=== PATIENT | male | born 1960 ===

== ENCOUNTER → 2019-12-19 08:59 | Outpatient (BNVA) | payer OTHER, SELFPAY | PROVIDERS: PCP Internal Medicine; Referring Provider Internal Medicine; Visit Provider Urology | DX: Z76.89 Persons encountering health services in other specified circumstances (principal) ==

== ENCOUNTER 2020-12-25 09:50 | Outpatient (REF) | payer OTHER, SELFPAY ==
--- NOTE | ~2020-12-25 | US_ITS ---
EXAMINATION: US RETROPERITONEAL COMPLETE (RENAL) CLINICAL INFORMATION: Neuromuscular dysfunction of bladder, hydronephrosis. COMPARISON: Renal ultrasound 11/16/2018 TECHNIQUE: Real-time imaging of the kidneys and bladder. FINDINGS: RIGHT KIDNEY: 10.7 x 4.4 x 5.6 cm (SAG x AP x TRV). The kidney is normal in size, contour, and echogenicity. Renal cortical thickness is normal. No calculi or focal parenchymal lesions. No hydronephrosis. LEFT KIDNEY: 10.8 x 4.0 x 5.5 cm (SAG x AP x TRV). The kidney is normal in size, contour, and echogenicity. Renal cortical thickness is normal. No calculi or focal parenchymal lesions. No hydronephrosis. BLADDER: The bladder wall appears diffusely thickened and trabeculated. Bilateral ureteral jets are demonstrated. Prevoid bladder volume is 536 mL. Postvoid bladder volume is 375 mL. PROSTATE: The prostate gland is normal in size and measures 3.3 x 3 x 3.3 cm, volume 17 mL. US/US retroperitoneal comp IMPRESSION: Normal renal ultrasound. Thickened trabeculated bladder wall and large 375 mL post void bladder residual.
== END 2020-12-25 09:51 | disposition home or self-care (01) ==
LOC: HO.HMGCX 09:50
PROVIDERS: Visit Provider Urology
DX: N31.9 Neuromuscular dysfunction of bladder, unspecified (principal); N13.30 Unspecified hydronephrosis
CPT/HCPCS: 76770

== ENCOUNTER → 2021-02-04 13:59 | Outpatient (BNVA) | payer OTHER, SELFPAY | PROVIDERS: PCP Internal Medicine ==

== ENCOUNTER → 2022-02-04 11:27 | Outpatient (BNVA) | payer OTHER, SELFPAY | PROVIDERS: PCP Internal Medicine; Visit Provider Urology | DX: N40.1 Benign prostatic hyperplasia with lower urinary tract symptoms (principal) ==

== ENCOUNTER 2022-02-14 16:37 | Outpatient (REF) | payer OTHER, SELFPAY ==
[2022-02-14 17:26] LABS: Appearance Urine Clear; Color Urine Yellow; Glucose Urine UA Negative (Negative); Leukocyte Esterase Urine Trace (Negative); Nitrite Urine Negative (Negative); PH 6.5 (5.0-9.0); UMIC TRIGGER UA YES; Urine Blood Negative (Negative); Urine Ketones Negative (Negative); Urine Protein Negative (Neg-Trace)
[2022-02-14 17:28] LABS: Bacteria Urine None Seen (None Seen); Hyaline Casts Urine 0-2 /LPF (0-2); RBC Urine 0-2 /HPF (0-2); Squamous Epithelial Cell Urine 0-2 /HPF (0-2); WBC Urine 0-5 /HPF (0-5)
== END 2022-02-14 16:38 | disposition home or self-care (01) ==
LOC: HO.LAB 16:37
PROVIDERS: PCP Internal Medicine; Visit Provider Urology
DX: N13.8 Other obstructive and reflux uropathy (principal); N31.9 Neuromuscular dysfunction of bladder, unspecified; N40.1 Benign prostatic hyperplasia with lower urinary tract symptoms
CPT/HCPCS: 81001; 87086

== ENCOUNTER → 2022-03-17 12:24 | Outpatient (BNVA) | payer OTHER, SELFPAY | PROVIDERS: PCP Internal Medicine; Visit Provider Urology | DX: Z13.89 Encounter for screening for other disorder (principal) ==

== ENCOUNTER → 2022-05-10 14:46 | Outpatient (BNVA) | payer OTHER, SELFPAY | PROVIDERS: PCP Internal Medicine; Visit Provider Urology | DX: Z13.89 Encounter for screening for other disorder (principal) ==

== ENCOUNTER 2022-11-16 08:46 | Outpatient (AMB) | payer OTHER, SELFPAY ==
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
== END 2022-11-16 10:04 | disposition home or self-care (01) ==
PROVIDERS: PCP Internal Medicine; Visit Provider Urology
DX: N31.9 Neuromuscular dysfunction of bladder, unspecified (principal); N40.1 Benign prostatic hyperplasia with lower urinary tract symptoms; N13.8 Other obstructive and reflux uropathy
CPT/HCPCS: 99214

== ENCOUNTER → 2022-11-16 08:46 | Outpatient (BNVA) | payer OTHER, SELFPAY | PROVIDERS: PCP Internal Medicine; Visit Provider Urology ==

== ENCOUNTER 2023-02-22 11:43 | Outpatient (AMB) | payer OTHER, SELFPAY ==
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
== END 2023-02-22 13:41 | disposition home or self-care (01) ==
LOC: HO.HUSH 11:43
PROVIDERS: PCP Internal Medicine; Visit Provider Urology
DX: N40.1 Benign prostatic hyperplasia with lower urinary tract symptoms (principal); N13.8 Other obstructive and reflux uropathy; N31.9 Neuromuscular dysfunction of bladder, unspecified
CPT/HCPCS: 99214

== ENCOUNTER → 2023-02-22 11:43 | Outpatient (BNVA) | payer OTHER, SELFPAY | PROVIDERS: PCP Internal Medicine; Visit Provider Urology ==

== ENCOUNTER 2023-03-13 08:34 | Day surgery (SDC) | payer OTHER, SELFPAY ==
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
[2023-03-13] VITALS (8 sets, daily range): BP systolic 83–116; BP diastolic 50–72; PULSE 51–70; RESP 12–16; TEMP 36.6–37.1; O2SAT 95–98; BMI 18.7
[2023-03-13] MEDS: Lactated Ringers 1,000 ML 100 ML IVCONT (09:49)
--- NOTE | 2023-03-13 10:52 | MHC.SHP ---
Pre-Procedural Eval Section A - 24 Hr Update-Section A only Date of Service: 03/13/23 The patient is an INPATIENT: No Changes since office visit: No Cold of Flu in the past 2 weeks, No New Medical Problems, No Changes in Medication and No Patient answered all questions The patient has been examined within 24 hours of the surgical procedure. The History & Physical has been completed within 30 days and I have reviewed it.: Yes Section B - Complete if H&P > 30 days Chief Complaint: Neuromuscular dysfunction of bladder, unspecified Allergies: Allergies Allergy/AdvReac Type Severity Reaction Status Date / Time Sulfa (Sulfonamide Allergy Unknown unknown Verified 03/13/23 09:20 Antibiotics) Plan Diagnosis/Plan: Unchanged (external urethral sphincterotomy - green light) I have reviewed the history and physical and performed a pertinent physical examination on my patient. No changes have occurred unless specified. Time Spent With Patient Time: Total time managing care of this patient today ____ minutes.
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
[2023-03-13] MEDS: oxyBUTYnin chloride ER 5 MG TAB.ER.24 PO (14:38)
--- NOTE | 2023-03-13 14:45 | PC.NURSE ---
dr. goins visited with patient and spouse and updated them regarding procedure and f/u. dr. goins also ordered for patient to receive po oxybutinin in discharge. given and this information written on discharge instructions.
== END 2023-03-13 14:46 | disposition home or self-care (01) ==
PROVIDERS: PCP Internal Medicine; Visit Provider Urology
PROC: (CPT 52648; principal; 2023-03-13 10:50)
DX: N31.9 Neuromuscular dysfunction of bladder, unspecified (principal); G82.54 Quadriplegia, C5-C7 incomplete; S14.157 Other incomplete lesion at C7 level of cervical spinal cord; S12.690S Other displaced fracture of seventh cervical vertebra, sequela; V89.2XXS Person injured in unspecified motor-vehicle accident, traffic, sequela; N40.1 Benign prostatic hyperplasia with lower urinary tract symptoms; N13.8 Other obstructive and reflux uropathy; R39.14 Feeling of incomplete bladder emptying; R33.9 Retention of urine, unspecified; Z98.890 Other specified postprocedural states; Z88.2 Allergy status to sulfonamides
CPT/HCPCS: 52648; 52277; J1956; J2704; J3010

== ENCOUNTER → 2023-03-13 08:34 | Outpatient (BNV) | payer OTHER, SELFPAY | PROVIDERS: PCP Internal Medicine; Visit Provider Urology | DX: N31.9 Neuromuscular dysfunction of bladder, unspecified (principal) | CPT/HCPCS: 52277 ==

== ENCOUNTER → 2023-03-15 09:45 | Outpatient (BNVA) | payer OTHER, SELFPAY | PROVIDERS: PCP Internal Medicine; Visit Provider Urology ==

== ENCOUNTER 2023-04-12 10:10 | Outpatient (AMB) | payer OTHER, SELFPAY ==
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
== END 2023-04-12 10:46 | disposition home or self-care (01) ==
PROVIDERS: PCP Internal Medicine; Visit Provider Urology
DX: N40.1 Benign prostatic hyperplasia with lower urinary tract symptoms (principal); N13.8 Other obstructive and reflux uropathy; N31.9 Neuromuscular dysfunction of bladder, unspecified
CPT/HCPCS: 99213

== ENCOUNTER → 2023-04-12 10:10 | Outpatient (BNVA) | payer OTHER, SELFPAY | PROVIDERS: PCP Internal Medicine; Visit Provider Urology | DX: N31.9 Neuromuscular dysfunction of bladder, unspecified (principal); N40.1 Benign prostatic hyperplasia with lower urinary tract symptoms; N13.8 Other obstructive and reflux uropathy; R33.8 Other retention of urine | CPT/HCPCS: 51798 ==

== ENCOUNTER 2023-05-10 12:49 | Outpatient (AMB) | payer OTHER, SELFPAY ==
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
== END 2023-05-10 13:59 | disposition home or self-care (01) ==
PROVIDERS: PCP Internal Medicine; Visit Provider Urology
DX: N31.9 Neuromuscular dysfunction of bladder, unspecified (principal)
CPT/HCPCS: 52000; 99213

== ENCOUNTER → 2023-05-10 12:49 | Outpatient (BNVA) | payer OTHER, SELFPAY | PROVIDERS: PCP Internal Medicine; Visit Provider Urology | DX: N31.9 Neuromuscular dysfunction of bladder, unspecified (principal); N40.1 Benign prostatic hyperplasia with lower urinary tract symptoms; N13.8 Other obstructive and reflux uropathy | CPT/HCPCS: 52000 ==

== ENCOUNTER 2023-09-05 09:10 | Outpatient (AMB) | payer OTHER, SELFPAY ==
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
== END 2023-09-05 12:00 | disposition home or self-care (01) ==
LOC: HO.HUSH 09:10
PROVIDERS: PCP Internal Medicine; Visit Provider Urology
DX: N40.1 Benign prostatic hyperplasia with lower urinary tract symptoms (principal); N13.8 Other obstructive and reflux uropathy; N31.9 Neuromuscular dysfunction of bladder, unspecified; N39.0 Urinary tract infection, site not specified
CPT/HCPCS: 99213

== ENCOUNTER → 2023-09-05 09:10 | Outpatient (BNVA) | payer OTHER, SELFPAY | PROVIDERS: PCP Internal Medicine; Visit Provider Urology ==

== ENCOUNTER 2023-11-17 11:21 | Outpatient (AMB) | payer OTHER, SELFPAY ==
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
== END 2023-11-17 13:01 | disposition home or self-care (01) ==
PROVIDERS: PCP Internal Medicine; Visit Provider Urology
DX: N31.9 Neuromuscular dysfunction of bladder, unspecified (principal); N40.1 Benign prostatic hyperplasia with lower urinary tract symptoms; N13.8 Other obstructive and reflux uropathy; N39.0 Urinary tract infection, site not specified
CPT/HCPCS: 99213

== ENCOUNTER → 2023-11-17 11:21 | Outpatient (BNVA) | payer OTHER, SELFPAY | PROVIDERS: PCP Internal Medicine; Visit Provider Urology ==

== ENCOUNTER 2024-04-05 12:04 | Outpatient (REF) | payer OTHER, SELFPAY ==
[2024-04-05 13:20] LABS: Appearance Urine Cloudy; Color Urine Yellow; Glucose Urine UA Negative (Negative); Leukocyte Esterase Urine Large (3+) (Negative); Nitrite Urine Negative (Negative); UMIC TRIGGER UA YES; Urine Blood Trace (Negative); Urine Ketones Negative (Negative); Urine Protein Negative (Neg-Trace)
[2024-04-05 13:23] LABS: Bacteria Urine 4+ (None Seen); Hyaline Casts Urine 0-2 /LPF (0-2); RBC Urine 0-2 /HPF (0-2); Squamous Epithelial Cell Urine 0-2 /HPF (0-2); WBC Urine >50 /HPF (0-5)
--- OUTSIDE RECORDS SUMMARY | 2024-04-05 14:20 | XMS_ITS | Encounter Summary ---
Author Organization [facility] Address [address] [place] [address] Care Team Providers Care Snowboarder Name Role Phone Bartolo Turk MD Primary Care Provider [phone] Reason for Referral * Imaging (Routine) - Authorized Specialty Diagnoses / Procedures Referred By Josephac t Referred To Contact Radiology Diagnoses Dysphagia, unspecified type Procedures XR Esophagram Tita Rincon PA [address] [address] Phone: tel: fax: [facility] [address] [place] [address] Phone: tel: Referral ID Status Reason Start Date Expiration Date V isits Requested Visits Authorized [id number] Authorized 01/24/2024 01/23/2025 1 1 Reason for Visit * Imaging (Routine) - Authorized Specialty Diagnoses / Procedures Referred By Contac t Referred To Contact Radiology Diagnoses Dysphagia, unspecified type Procedures XR Esophagram Tita Rincon PA [address] [address] Phone: tel: fax: [facility] [address] [place] [address] Phone: tel: Referral ID Status Reason Start Date Expiration Date V isits Requested Visits Authorized [id number] Authorized 01/24/2024 01/23/2025 1 1 Encounter Details Date Type Department Care Team (Latest Contact Info) Description 04/02/2024 7:59 AM EST - 04/02/2024 11:59 PM EST Hospital Encounter [facility] X[address] [place] [address] Dysphagia, unspecified type Discharge Disposition: Home or Self Care Social History Tobacco Use Types Packs/Day Years Used Date Smoking Tobacco: Never Smokeless Tobacco: Never Alcohol Use Standard Drinks/Week Comments No 0 (1 standard drink = 0.6 oz pur e alcohol) Sex and Gender Information Value Date Recorded Sex Assigned at Not on file Legal Sex Male 7:15 PM EST Gender Identity Not on file Sexual Orientation Not on file documented as of this encounter Medications at Time of Discharge baclofen (LIORESAL) 10 mg tablet Take 1 Tablet by mouth 4 times daily. 05/19/2023 betamethasone, augmented, (DIPROLENE) 0.05 % ointment apply twice daily to hand lesions 06/07/2016 ciclopirox (LOPROX) 0.77 % cream APPLY TWICE DAILY TO RASH OF THE FEET NEEDED. 09/11/2023 clonazePAM (KlonoPIN) 1 mg tablet Take 1 tablet daily from Monday to Monday and 2 tabs on Monday 34 tablet 03/19/2024 5 drainage bag misc 1 Each by route as needed (monthly for neurogenic bladder N319). Reusable Urine Leg Bag Use #1 / month 11 refills Indefinite Use Dx: G82.50, N31.9 01/02/2023 midodrine (PROAMATINE) 5 mg tablet Take 1 Tablet by mouth 3 times daily for 360 days. 05/02/2023 mupirocin (BACTROBAN) 2 % ointment Apply twice daily for 10 days 01/04/2022 nystatin (MYCOSTATIN) 100,000 unit/gram powder Apply topically 2 (two) times a day. 60 g 1 12/22/2023 oxyBUTYnin (DITROPAN) 5 mg tablet Take 0.5 Tablets by mouth 4 times daily. 05/19/2023 terazosin (HYTRIN) 10 mg capsule Take 1 capsule (10 mg total) by mouth 1 (one) time. 10/27/2023 documented as of this encounter Discharge Disposition Disposition Code Departure Means Destination Home or Self Care documented in this encounter Plan of Treatment Upcoming Encounters Date Type Department Care Team (Late st Contact Info) Description 04/29/2024 9:30 AM EDT Office Visit Gastroenterology - [place] [address] [place] [id number] Tita Rincon PA [address] [place] [address] documented as of this encounter Procedures Procedure Name Priority Date/Time Associated Diagnosis Comments XR ESOPHAGRAM Routine 04/02/2024 9:51 AM EST Dysphagia, unspecified type documented in this encounter Results * XR Esophagram (04/02/2024 9:51 AM EST) Anatomical Region Laterality Modality Head and Neck Radiographic Rayna ging 04/02/2024 11:5 0 AM EST Impressions 04/02/2024 12:41 PM EST Limited single contrast esophagram as described above. 1. Mild esophageal dysmotility. 2. Temporary lodging of 13 mm barium tablet within the epiglottis, indicating weak epiglottic inversion. Consider evaluation with speech-language pathology. -------- FINAL REPORT -------- Dictated By: Ayleen Montoya Dictated Date: 04/02/2024 11:50 ET Assigned Physician: Braxton Mejia Reviewed and Electronically Signed By: Braxton Mejia Signed Date: 04/02/2024 12:41 ET Workstation ID: [id number] Transcribed By: Self Edit Transcribed Date: 04/02/2024 12:07 ET Resident/PA/COMPLAINT OPERATOR: Ayleen Montoya Narrative 04/02/2024 12:41 PM EST FINDINGS: Limited single contrast esophagram performed. COMPARISON: None HISTORY: Patient is a 63-year-old male with quadriplegia, dysphagia. Lube Worker radiographs: 1 view chest radiograph demonstrates cardiac and mediastinal contours within normal limits. Lungs are clear bilaterally. Costophrenic angles are sharp. There is dextroscoliosis of the thoracic spine. Osseous structures are grossly unremarkable. 1 view lateral soft tissue neck demonstrates no prevertebral soft tissue masses. Airway is widely patent. There are severe degenerative changes of the cervical spine. Effervescent crystals were administered orally. Thick and thin barium were administered orally under fluoroscopic control. Pharyngoesophagram: Rapid sequence imaging of the hypopharynx during swallowing demonstrates prompt initiation of swallowing. There is normal soft palate elevation and normal epiglottic motion. There is no laryngeal penetration or chemo aspiration. There is no residual in the vallecula nor in the piriform sinuses. Thoracic esophagus: There is mild esophageal dysmotility. Normal distensibility and mucosal pattern without evidence of ulceration, stricture or mass formation. 13mm Barium pill: Swallowed without difficulty. Temporary lodging of 13 mm barium tablet within the epiglottis, indicating weak epiglottic inversion. Subsequent prompt passage of pill from the esophagus into the stomach. DAP: 4.33 Gycm^2 Procedure Note Braxton Mejia MD - 04/02/2024 FINDINGS: Limited single contrast esophagram performed. COMPARISON: None HISTORY: Patient is a 63-year-old male with quadriplegia, dysphagia. Lube Worker radiographs: 1 view chest radiograph demonstrates cardiac andmediastinal contours within normal limits. Lungs are clear bilaterally.Costophrenic angles are sharp. There is dextroscoliosis of the thoracicspine. Osseous structures are grossly unremarkable. 1 view lateral softtissue neck demonstrates no prevertebral soft tissue masses. Airway iswidely patent. There are severe degenerative changes of the cervicalspine. Effervescent crystals were administered orally. Thick and thin barium wereadministered orally under fluoroscopic control. Pharyngoesophagram: Rapid sequence imaging of the hypopharynx duringswallowing demonstrates prompt initiation of swallowing. There is normalsoft palate elevation and normal epiglottic motion. There is no laryngealpenetration or chemo aspiration. There is no residual in the vallecula norin the piriform sinuses. Thoracic esophagus: There is mild esophageal dysmotility. Normaldistensibility and mucosal pattern without evidence of ulceration,stricture or mass formation. 13mm Barium pill: Swallowed without difficulty. Temporary lodging of 13 mmbarium tablet within the epiglottis, indicating weak epiglottic inversion.Subsequent prompt passage of pill from the esophagus into the stomach. DAP: 4.33 Gycm^2 IMPRESSION: Limited single contrast esophagram as described above. 1. Mild esophageal dysmotility. 2. Temporary lodging of 13 mm barium tablet within the epiglottis,indicating weak epiglottic inversion. Consider evaluation withspeech-language pathology. -------- FINAL REPORT -------- Dictated By: Ayleen Montoya Dictated Date: 04/02/2024 11:50 ET Assigned Physician: Braxton Mejia Reviewed and Electronically Signed By: Braxton Mejia Signed Date: 04/02/2024 12:41 ET Workstation ID: [id number] Transcribed By: Self Edit Transcribed Date: 04/02/2024 12:07 ET Resident/PA/COMPLAINT OPERATOR: Ayleen Montoya Tita GEORGES IMSanchez FLUOROSCOPY PROCEDURES Fi nal Result documented in this encounter Visit Diagnoses Diagnosis Dysphagia, unspecified type documented in this encounter Administered Medications Inactive Administered Medications - up to 3 most recent administrations Medication Order MAR Action Action Date Dose Rate Site barium sulfate (E-Z-DISK) tablet 700 mg 700 mg, oral, Once in imaging, Starting on Mon04/02/24 at 0917, For 1 dose, Swallow whole with 1-2 swallows of water just prior to fluoroscopic examination. Given 04/02/2024 9:18 AM EST 700 mg barium sulfate (E-Z-PAQUE) 96 % (w/w) suspension 100 mL 100 mL, oral, Once in imaging, Starting on Mon04/02/24 at 0917, For 1 dose Given 04/02/2024 9:17 AM EST 100 mL documented in this encounter Care Teams Snowboarder Relationship Specialty Start Date End Date Bartolo Turk MD [address] [place] [id number] PCP - General Internal Medicine 12/26/19 documented as of this encounter
--- OUTSIDE RECORDS SUMMARY | 2024-04-05 14:20 | XMS_ITS | Clinical Summary ---
Author Organization [facility] Address [address] [place] [address] Care Team Providers Care Electrical Equipment Tester Name Role Phone Unavailable Primary Care Provider Unavailabl e Source Comments PLEASE NOTE, if this patient is a minor, it may be UNLAWFUL to discuss sensitive information that is contained in these records (such as FAMILY PLANNING, MENTAL HEALTH or SUBSTANCE ABUSE) with the minor patient's parent or other person without the patient's specific authorization.[facility] Immunizations Name Administration Dates Next Due Moderna COVID-19 Vaccine, re d cap blue label, 12+ Primary Series 06/09/2020,05/12/2020 Social History Tobacco Use Types Packs/Day Years Used Date Smoking Tobacco: Never Assessed Social Connections Answer Date Recorded Social Connections and Isolation 0 05/12/2020 Financial Resource Strain Answer Date R ecorded Financial Resource Strain 0 2020 Stress Answer Date Recorded Stress 0 05/12/2020 Physical Activity Answer Date Recorded Physical Activity 0 05/12/2020 Food Insecurity Answer Date Recorded Food 0 05/12/2020 Transportation Needs Answer Date Record ed Transportation 0 05/12/2020 Housing Stability Answer Date Recorded Housing 0 05/12/2020 Safety and Environment Answer Date Zion rded Safety 0 05/12/2020 Utilities Answer Date Recorded Utilities 0 05/12/2020 Employment Answer Date Recorded Employment 0 05/12/2020 Sex and Gender Information Value Date Recorded Sex Assigned at Not on file Legal Sex Male 9:00 AM PDT Gender Identity Not on file Sexual Orientation Not on file Plan of Treatment Health Maintenance Due Date Last Done Comments Diabetes Screening 1960 Hepatitis C Screening 1962 Lipid Screening 1962 Tobacco Screening 1962 HIV Screening 1977 Hypertension Screening (#1) 1980 CT Colonography 04/18/2007 Colonoscopy 04/18/2007 Colorectal Cancer Screening 04/18/2007 FIT/gFOBT 04/18/2007 Fecal DNA 04/18/2007 Flexible Sigmoidoscopy 04/18/2007 Imm-Zoster, Recombinant (1 of 2) 2012 [id number] ( - 2023- season) 2023 021, 05/12/2020 Imm-Influenza (#1) 2023 03/02/2020, 1 03/22/2017, 10/23/2016, Additional history exists Alcohol and Drug Screen 02/07/2024 Depression Annual Screen 02/07/2024 Imm-DTaP/Tdap/Td (3 - Td or Tdap) 06/15/2027 018, 04/30/2007 Insurance [facility] [employer] Member Subscriber Plan / Payer (Ef fective 2019-Present) Name:Ponce Hargrove Relation to Subscriber:Self Name:Ponce Hargrove Payer ID:[id number] Type:Indemnity Address: [address] [address]
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
== END 2024-04-05 12:05 | disposition home or self-care (01) ==
LOC: HO.10HDLNP 12:04
PROVIDERS: Visit Provider Urology
DX: N40.1 Benign prostatic hyperplasia with lower urinary tract symptoms (principal); N13.8 Other obstructive and reflux uropathy; N39.0 Urinary tract infection, site not specified
CPT/HCPCS: 81001; 87086; 87088; 87186

== ENCOUNTER 2024-05-03 10:46 | Outpatient (AMB) | payer OTHER, SELFPAY ==
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
== END 2024-05-03 11:49 | disposition home or self-care (01) ==
LOC: HO.HUSH 10:46
PROVIDERS: PCP Internal Medicine; Visit Provider Urology
DX: N41.9 Inflammatory disease of prostate, unspecified (principal); N39.0 Urinary tract infection, site not specified
CPT/HCPCS: 99214

== ENCOUNTER 2024-05-21 12:06 | Outpatient (AMB) | payer OTHER, SELFPAY ==
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
--- OUTSIDE RECORDS SUMMARY | 2024-05-21 14:49 | XMS_ITS | Clinical Summary ---
Author Organization [facility] Address [address] [place] [address] Care Team Providers Care Manager Reimbursement Name Role Phone Unavailable Primary Care Provider Unavailabl e Source Comments PLEASE NOTE, if this patient is a minor, it may be UNLAWFUL to discuss sensitive information that is contained in these records (such as FAMILY PLANNING, MENTAL HEALTH or SUBSTANCE ABUSE) with the minor patient's parent or other person without the patient's specific authorization.[facility] Immunizations Immunization Administration Dates Next Due Moderna COVID-19 Vaccine, [...] Health Maintenance Due Date Last Done Comments Anxiety Screening 1962 Diabetes Screening 1962 Hepatitis C Screening 1962 Lipid Screening 1962 Tobacco Screening 1962 HIV Screening 1977 Hypertension Screening (#1) 1980 CT Colonography 04/18/2007 Colonoscopy 04/18/2007 Colorectal Cancer Screening 04/18/2007 FIT/gFOBT 04/18/2007 Fecal DNA 04/18/2007 Flexible Sigmoidoscopy 04/18/2007 Imm-Zoster, Recombinant (1 of 2) 2012 [id number] (3 - 2023- season) 2023 021, 05/12/2020 Imm-Influenza (#1) 2023 03/02/2020, 1 03/22/2017, 10/23/2016, Additional history exists Alcohol and Drug Screen 02/07/2024 Depression Annual Screen 02/07/2024 Imm-DTaP/Tdap/Td (3 - Td or Tdap) 06/15/2027 018, 04/30/2007 Insurance [facility] Member Subscriber Plan / Payer (Ef fective 2019-Present) Name:Ponce Hargrove Relation to Subscriber:Self Name:Ponce Hargrove Payer ID:[id number] Type:Indemnity Address: [address] [address]
--- OUTSIDE RECORDS SUMMARY | 2024-05-21 14:49 | XMS_ITS | Clinical Summary ---
Author Organization [facility] Address [address] [place] [address] Care Team Providers Care Associate Professor Of Library Media Name Role Phone Unavailable Primary Care Provider Unavailabl e Social History Tobacco Use Types Packs/Day Years Used Date Smoking Tobacco: Never Assessed Sex and Gender Information Value Date Recorded Sex Assigned at Male 05/21/2024 10:38 AM EDT Gender Identity Male 05/21/2024 10:38 AM EDT Sexual Orientation Asexual 05/21/2024 10 :38 AM EDT Plan of Treatment Upcoming Encounters Date Type Department Care Team (Late st Contact Info) Description 05/22/2024 10:00 AM EDT Consult [facility] [address] [place] [address] Yousuf Sheikh, DESTINI [address] [place] [id number] Health Maintenance Due Date Last Done Comments Hepatitis C Virus Screening 1962 HIV Screening 04/18/1975 DTaP/Tdap/Td Vaccines (1 - Tdap) 1981 Colonoscopy 04/18/2007 Pneumococcal Vaccines 50+ (1 of 1 - PCV) 2012 Zoster (Shingles) Vaccine (1 of 2) 2012 Influenza Vaccine 09/07/2023 COVID-19 Vaccine (1 - 2023-2 5 season) 2023 RSV Vaccine 60 years and old er and Patients (1 - 1-dose 75+ series) 2037 Hepatitis B Vaccines Aged Out No long er eligible based on patient's age to complete this topic
--- OUTSIDE RECORDS SUMMARY | 2024-05-21 14:49 | XMS_ITS ---
Author Name [facility] Organization Unknown Care Team Organization Name Specialty Phone Email Start Date End Silvio sun [facility] 05/08/2024
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
== END 2024-05-21 13:48 | disposition home or self-care (01) ==
LOC: HO.HUSH 12:06
PROVIDERS: PCP Internal Medicine; Visit Provider Urology
DX: N41.9 Inflammatory disease of prostate, unspecified (principal)
CPT/HCPCS: 99213

== ENCOUNTER → 2024-05-21 12:06 | Outpatient (BNVA) | payer OTHER, SELFPAY | PROVIDERS: PCP Internal Medicine; Visit Provider Urology ==

== ENCOUNTER 2024-11-08 09:56 | Outpatient (AMB) | payer OTHER, SELFPAY ==
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
--- OUTSIDE RECORDS SUMMARY | 2024-11-08 10:41 | XMS_ITS | Clinical Summary ---
Author Organization [facility] Address [address] [place] [address] Care Team Providers Care Field Services Manager Name Role Phone Bartolo Turk MD Primary Care Provider Un available Social History Tobacco Use Types Packs/Day Years Used Date Smoking Tobacco: Never Assessed Sex and Gender Information Value Date Recorded Sex Assigned at Male 05/21/2024 10:38 AM EDT Legal Sex Male 11:07 AM EDT Gender Identity Male 05/21/2024 10:38 AM EDT Sexual Orientation Asexual 05/21/2024 10 :38 AM EDT Plan of Treatment Health Maintenance Due Date Last Done Comments Hepatitis C Virus Screening 1962 HIV Screening 04/18/1975 DTaP/Tdap/Td Vaccines (1 - Tdap) 1981 Colonoscopy 04/18/2007 Pneumococcal Vaccines 50+ (1 of 1 - PCV) 2012 Zoster (Shingles) Vaccine (1 of 2) 2012 Influenza Vaccine 09/06/2024 12/22/2023, , 01/04/2022, Additional history exists COVID-19 Vaccine ( - 2024- season) 2024 01/28/2021, 05/14/2020 RSV Vaccine 60 years and older and Patients (1 - 1-dose 75+ series) 2037 Hepatitis B Vaccines Aged Out No long er eligible based on patient's age to complete this topic Insurance [employer] MEDICARE Care Teams Field Services Manager Relationship Specialty Start Date End Date Bartolo Turk MD PCP - General Internal Medicine 08/07/23
--- OUTSIDE RECORDS SUMMARY | 2024-11-08 10:41 | XMS_ITS | Clinical Summary ---
Author Organization [facility] Address [address] [place] [address] Care Team Providers Care Wrapper Sheeter Name Role Phone Unavailable Primary Care Provider [...] 04/18/2007 Imm-Zoster, Recombinant (1 of 2) 2012 Imm-Pneumococcal 50+ (2 of 2 - PCV) 06/07/2017 06/07/2016, 12/29/2003 Alcohol and Drug Screen 02/07/2024 Depression Annual Screen 02/07/2024 [id number] (3 - 2024- season) 2024 021, 05/12/2020 Imm-Influenza (#1) 2024 03/02/2020, 1 03/22/2017, 10/23/2016, Additional history exists Imm-DTaP/Tdap/Td (3 - Td or Tdap) 06/15/2027 018, 04/30/2007 Insurance [facility]
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
--- OUTSIDE RECORDS SUMMARY | 2024-11-08 10:41 | XMS_ITS | Encounter Summary ---
Author Organization [facility] [place] [address] Care Team Providers Care Frame Aligner Name Role Phone Bartolo Turk MD Primary Care Provider Un available Encounter Details Date Type Department Care Team (Late st Contact Info) Description 11/04/2024 Results Follow-Up Internal Medicine - [facility] [address] [place] [phone] Yanna Richards, CINDY [address] [place] [address] Social History Tobacco Use Types Packs/Day Years [...] ed Within the last 3 months, ho w many times did you visit the emergency [...] for your loved ones. For example, child caregiver private home or elderly care for an older adult? [...] on file documented as of this encounter Plan of Treatment Not on file documented as of this encounter Visit Diagnoses Not on filedocumented in this encounter Additional Health Concerns Assessment Noted Time PHQ-9 Depression Total Score: 2 06/05/19 25 12:51 PM EDT documented as of this encounter Care Teams Frame Aligner Relationship Specialty Start Date End Date Bartolo Turk MD PCP - General Internal Medicine 12/26/19 documented as of this encounter
--- OUTSIDE RECORDS SUMMARY | 2024-11-08 10:42 | XMS_ITS | Clinical Summary ---
Author Organization [facility] Address [address] [address] Phone Care Team Providers Care Vice President Digital Strategist Name Role Phone Dorothy Basurto MD Primary Care Provider Unavailable Social History Tobacco Use Types Packs/Day Years Used Date Smoking Tobacco: Never Assessed Education Answer Date Recorded Are you interested in more education? Not on perla e 06/19/2022 Are you concerned about learning? Not on file 06/19/2022 No 06/19/2022 No 06/19/2022 Digital Access Answer Date Recorded No 07/03/2022 No 07/03/2022 No 07/03/2022 Reliable internet access at home? Not on file 07/03/2022 Device with a working camera? Not on file Sex and Gender Information Value Date Recorded Sex Assigned at Not on file Legal Sex Male 5:24 PM EST Gender Identity Not on file Sexual Orientation Not on file Plan of Treatment Health Maintenance Due Date Last Done Comments LIPID PANEL 1962 DEPRESSION SCREENING 1974 SMOKING Hx and SMOKELESS TOBACCO SCREENING 04/18/1975 HEPATITIS C SCREENING 1980 HIV ONE-TIME SCREENING (18-65 YEARS) 1980 COLOGUARD 04/18/2007 COLONOSCOPY 04/18/2007 COLORECTAL CANCER SCREENING 04/18/2007 FIT TEST 04/18/2007 FOBT 04/18/2007 SIGMOIDOSCOPY 04/18/2007 VIRTUAL COLONOSCOPY 04/18/2007 ZOSTER VACCINES (1 of 2) 2012 PNEUMOCOCCAL VACCINES (50+ years) (2 of 2 - PCV) 06/07/2017 06/07/2016, 12/29/2003 INFLUENZA VACCINE (#1) 2024 1, 01/19/2018, 10/23/2016, Additional history exists COVID-19 VACCINE ( season) 2024 01/28/2021, 06/09/2020, 05/12/2020 Adult Td,Tdap Booster 06/15/2027 06/14/2017, 008 RSV VACCINE (1 - 1-dose 75+ series) 2037 HEPATITIS A VACCINES Aged Out No long er eligible based on patient's age to complete this topic HIB VACCINES Aged Out No longer eligi ble based on patient's age to complete this topic MENINGOCOCCAL VACCINES (ACWY) Aged Out No longer eligible based on patient's age to complete this topic MENINGOCOCCAL VACCINES (B) Aged Out N o longer eligible based on patient's age to complete this topic Medical Devices Not on file Insurance [facility] NAV[employer] Care Teams Vice President Digital Strategist Relationship Specialty Start Date End Date Dorothy Basurto MD PCP - General 11/22/16 Additional Source Comments The information contained in this document represents components of the legal health record. It is not the complete legal health record.[facility]
--- OUTSIDE RECORDS SUMMARY | 2024-11-08 10:42 | XMS_ITS | Encounter Summary ---
Author Organization [facility] Address [address] [place] [phone] Phone Care Team Providers Care Painter Mirror Name Role Phone Dorothy Basurto MD Primary Care Provider Unavailable Encounter Details Date Type Department Care Team (Latest Contact Info) Description 01/18/2021 Transcribe Orders Virtual Department [address] [place] [address] Sergio Erickson MD [address] [place] [phone] [email or web address] Pain in unspecified hip (Primary Dx); Neuromuscular scoliosis, thoracolumbar region Social History Tobacco Use Types Packs/Day Years Used Date Smoking Tobacco: Never Assessed Sex and Gender Information Value Date Recorded Sex Assigned at Not on file Legal Sex Male 5:24 PM EST Gender Identity Not on file Sexual Orientation Not on file documented as of this encounter Plan of Treatment Not on file documented as of this encounter Visit Diagnoses Diagnosis Pain in unspecified hip- Primary Neuromuscular scoliosis, thoracolumbar region documented in this encounter Care Teams Painter Mirror Relationship Specialty Start Date End Date Dorothy Basurto MD PCP - General 11/22/16 documented as of this encounter Additional Source Comments The information contained in this document represents components of the legal health record. It is not the complete legal health record.[facility]
--- OUTSIDE RECORDS SUMMARY | 2024-11-08 10:42 | XMS_ITS | Encounter Summary ---
Author Organization [facility] Address [address] [facility] [address] [place] [phone] Phone Care Team Providers Care Safe And Vault Service Mechanic Name Role Phone Dorothy Basurto MD Primary Care Provider Unavailable Encounter Details Date Type Department Care Team (Latest Contact Info) Description 01/19/2021 Transcribe Orders Virtual Department [address] [place] [address] Sergio Erickson MD [address] [place] [phone] [email or web address] Right shoulder pain, unspecified chronicity (Primary Dx) Social History Tobacco Use Types Packs/Day Years Used Date Smoking Tobacco: Never Assessed Sex and Gender Information Value Date Recorded Sex Assigned at Not on file Legal Sex Male 5:24 PM EST Gender Identity Not on file Sexual Orientation Not on file documented as of this encounter Plan of Treatment Not on file documented as of this encounter Visit Diagnoses Diagnosis Right shoulder pain, unspecified chronicity- Primary documented in this encounter Care Teams Safe And Vault Service Mechanic Relationship Specialty Start Date End Date Dorothy Basurto MD PCP - General 11/22/16 documented as of this encounter Additional Source Comments The information contained in this document represents components of the legal health record. It is not the complete legal health record.[facility]
== END 2024-11-08 11:28 | disposition home or self-care (01) ==
LOC: HO.HUSH 09:57
PROVIDERS: PCP Internal Medicine; Visit Provider Urology
DX: N31.9 Neuromuscular dysfunction of bladder, unspecified (principal); N41.9 Inflammatory disease of prostate, unspecified
CPT/HCPCS: 99214